=== PATIENT | female | born 2000 | race Asian ===

== ENCOUNTER 2023-07-09 14:55 | Emergency (ER) | payer OTHER, SELFPAY ==
[2023-07-09 15:54] VITALS: BP 96/66; PULSE 114; RESP 16; TEMP 37; O2SAT 100
[2023-07-09 16:32] LABS: Influenza A QL RT-PCR Positive (Negative); Influenza B QL RT-PCR Negative (Negative); RSV RNA, RT-PCR Negative (Negative); SARS-CoV-2 RNA PCR Negative (Negative)
--- NOTE | 2023-07-09 17:58 | ED.URI ---
HPI - URI/Sore Throat General Chief Complaint: Upper Respiratory Infection Stated Complaint: URI S/SX Time Seen by Provider: 07/09/23 17:41 Source: patient and RN notes reviewed Mode of arrival: ambulatory Limitations: no limitations History of Present Illness HPI Narrative: This is a 23 year old female who presents for evaluation of 5-6 days of cough, body aches, headache . She reports she feels like she has fever but she has not measured. She denies nausea, vomiting, or dizziness. She is taking tylenol for her symptoms. She denies shortness of breath. She has abdominal pain with coughing only. Related Data Allergies Allergy/AdvReac Type Severity Reaction Status Date / Time No Known Allergies Allergy Verified 07/09/23 18:01 Review of Systems Constitutional: Constitutional: Reports fever(s) (subjective) and Denies weakness ENT: Reports nasal congestion Cardiovascular: Cardiovascular: Denies syncope, Denies rapid heart rate, Denies irregular heart rhythm, Denies leg edema and Denies dyspnea Respiratory: Respiratory: Reports chest congestion, Reports cough, Denies hemoptysis, Denies excessive phlegm production and Denies dyspnea Gastrointestinal: Gastrointestinal: Denies abdominal pain, Denies hematochezia, Denies diarrhea and Denies vomiting Genitourinary: Genitourinary: Denies hematuria and Denies dysuria Musculoskeletal: Musculoskeletal: Denies joint swelling, Denies loss of height and Denies muscle weakness Neurologic: Denies syncope, Denies focal weakness and Denies weakness PMFSH Past Medical History Medical History (Updated 07/09/23 @ 18:01 by Lizzy Sotomayor MD) Patient denies medical problems Social History Social History (Updated 07/09/23 @ 17:59 by Lizzy Sotomayor MD) Smoking status: Never smoker Exam Const: General: no acute distress and alert Nutritional Appearance: well nourished Orientation/consciousness: patient oriented x3 Limitations: no limitations HENMT: Head: normal to inspection Face and sinus: normal facial exam and sinuses nontender Mouth: Yes Normal oral and palatal mucosa present, Yes lip normal and Yes moist mucous membranes Throat: posterior oropharynx normal and uvula midline Eyes: EOM: EOMs intact bilaterally Neck: Neck: normal visual inspection Chest: Chest palpation & inspection: normal inspection of the chest Resp: Effort & Inspection: normal respiratory effort Auscultation: clear to auscultation bilaterally Cardio: Rate: regular rate Rhythm: regular rhythm Heart sounds: no murmurs GI: GI Palp: Yes Soft to palpation, No Tenderness to palpation present (GI), No Guarding due to palpation present (GI) and No Rigid due to palpation Auscultation: normal bowel sounds Skin: General skin exam: normal color Rashes: no rashes Wounds: no wounds Neuro: General: patient oriented x3, moves all extremities and CN's II-XI intact bilaterally Psych: Mental Status: mental status grossly normal Affect: normal affect Attitude: cooperative Course Vital Signs Vital signs: Vital Signs Temperature 98.6 F 07/09/23 15:54 Pulse Rate 114 H 07/09/23 15:54 Respiratory Rate 16 07/09/23 15:54 Blood Pressure 96/66 L 07/09/23 15:54 Pulse Oximetry 100 07/09/23 15:54 Oxygen Delivery Room Air 07/09/23 15:54 Temperature 98.6 F 07/09/23 15:54 Pulse Rate 114 H 07/09/23 15:54 Respiratory Rate 16 07/09/23 15:54 Blood Pressure 96/66 L 07/09/23 15:54 Pulse Oximetry 100 07/09/23 15:54 Oxygen Delivery Room Air 07/09/23 15:54 MDM - URI/Sore Throat MDM Narrative Medical decision making narrative: Patient presented with URI symptoms. She was positive for flu. She is not ill appearing. She is outside window for tamiflu. I discussed outpatient managment and return precautions. Differential Diagnosis Differential diagnosis: Likely upper respiratory infection, sinusitis, viral infection, bronchitis and influenza Lab Data Attestation: I
== END 2023-07-09 18:45 | disposition home or self-care (01) ==
LOC: ANHED 18:06
PROVIDERS: Emergency Medicine; Emergency Provider General Practice
DX: J10.1 Influenza due to other identified influenza virus with other respiratory manifestations (principal); Z20.822 Contact with and (suspected) exposure to COVID-19
CPT/HCPCS: 87637; 99283

== ENCOUNTER 2024-01-28 00:04 | Emergency (ER) | payer OTHER, SELFPAY ==
[2024-01-28 00:21] VITALS: BP 106/56; PULSE 88; RESP 15; TEMP 36.6; O2SAT 100
--- NOTE | 2024-01-28 03:05 | ED.GENADULT ---
HPI - General Adult General Chief complaint: Unspecified Stated complaint: face swelling Time Seen by Provider: 01/28/24 02:17 History of Present Illness HPI narrative: Patient is a 23-year-old female who presents emergency department with chief complaint of facial swelling. Patient reports that she noticed swelling on the left side of her cheek. The patient reports she has no known dental issues does reports that she is getting some cm and then noticed she started swelling and she call [place] side of her face. The patient reports that she has pain with opening her mouth normally open about 1/2-2 cm. Patient denies shortness of breath denies inability to swallow denies stridor is able to speak in complete sentences Related Data Allergies Allergy/AdvReac Type Severity Reaction Status Date / Time No Known Allergies Allergy Verified 01/28/24 01:02 Review of Systems Review of Systems: A 10 system review of systems was completed on the patient and is negative except for what is stated in the HPI. Nursing and ancillary documentation was reviewed. [facility] Past Medical History Medical History Patient denies medical problems Social History Social History Smoking status: Never smoker Course Vital Signs Vital signs: Vital Signs Temperature 36.6 C 01/28/24 00:21 Pulse Rate 88 01/28/24 00:21 Respiratory Rate 15 01/28/24 00:21 Blood Pressure 106/56 L 01/28/24 00:21 Pulse Oximetry 100 01/28/24 00:21 Oxygen Delivery Room Air 01/28/24 00:21 Temperature 36.6 C 01/28/24 00:21 Pulse Rate 88 01/28/24 00:21 Respiratory Rate 15 01/28/24 00:21 Blood Pressure 106/56 L 01/28/24 00:21 Pulse Oximetry 100 01/28/24 00:21 Oxygen Delivery Room Air 01/28/24 00:21 Medical Decision Making [facility] Narrative Medical decision making narrative: Differential diagnosis includes cell adenitis, soft tissue infection, abscess, Laboratory studies were ordered and CT was ordered. The patient decided that she did not want stay in the emergency department is decided to leave AMA. Vital Signs Vital Signs: Vital Signs Temperature 36.6 C 01/28/24 00:21 Pulse Rate 88 04/09/24 00:21 Respiratory Rate 15 01/28/24 00:21 Blood Pressure 106/56 L 01/28/24 00:21 Pulse Oximetry 100 01/28/24 00:21 Oxygen Delivery Room Air 01/28/24 00:21 Temperature 36.6 C 01/28/24 00:21 Pulse Rate 88 01/28/24 00:21 Respiratory Rate 15 01/28/24 00:21 Blood Pressure 106/56 L 01/28/24 00:21 Pulse Oximetry 100 01/28/24 00:21 Oxygen Delivery Room Air 01/28/24 00:21 Discharge Plan Discharge Clinical Impression: Swelling of left side of face Patient Disposition: Left Against Medical Advice Condition: Stable Prescriptions: No Action benzonatate 100 mg capsule 100 mg PO TID PRN (Reason: cough) Qty: 14 0RF Follow-up/Referrals: PHYSICIAN,DECISION SUPPORT MANAGER [Primary Care Provider] -
--- NOTE | 2024-01-28 03:14 | PC.NURSE ---
Pt asking questions regarding the timeframe for lab work to come back along with prices for all tests that were ordered. When informed that this RN did not have any of those answers, pt decided to leave AMA. AMA paperwork signed.
== END 2024-01-28 03:15 | disposition left against medical advice (07) ==
PROVIDERS: Emergency Provider Emergency Medicine
DX: R22.0 Localized swelling, mass and lump, head (principal)
CPT/HCPCS: 99281